=== PATIENT | female | born 1980 | race Hispanic/Latino ===

== ENCOUNTER 2023-11-02 13:59 | Emergency (ER) | payer MEDICAID, OTHER ==
[~2023-11-02] VITALS: Ht 152.4 cm; Wt 65.8 kg
[2023-11-02] MEDS ORDERED: NAPR375T6 PO (16:00)
[2023-11-02 16:06] VITALS: BP 114/87; PULSE 58; RESP 16; TEMP 98.5; O2SAT 100
== END 2023-11-02 16:35 | disposition home or self-care (01) ==
LOC: EDH 13:59
DX: S86.811A Strain of other muscle(s) and tendon(s) at lower leg level, right leg, initial encounter (principal); Z98.890 Other specified postprocedural states; W18.39XA Other fall on same level, initial encounter; Y93.89 Activity, other specified; Y92.89 Other specified places as the place of occurrence of the external cause; Y99.8 Other external cause status
CPT/HCPCS: 29505; 73562